=== PATIENT | male | born 1980 | race Caucasian/White ===

== ENCOUNTER → 2021-09-28 | Outpatient (CLI) | payer OTHER, SELFPAY ==
[2021-09-28 10:17] LABS: Probe Check PASS; Specimen Processing Control PASS
== END | disposition home or self-care (01) ==
LOC: LABSPEC 09:19
PROVIDERS: PCP Family Medicine; Referring Provider Family Medicine; Visit Provider Family Medicine
DX: Z20.822 Contact with and (suspected) exposure to COVID-19 (principal)
CPT/HCPCS: 87635; U0005; U0003

== ENCOUNTER 2021-12-24 18:17 | Outpatient (CLI) | payer OTHER, SELFPAY | END 2021-12-24 23:59 | disposition short-term general hospital (02) | PROVIDERS: PCP Family Medicine; Visit Provider Family Medicine | DX: Z03.818 Encounter for observation for suspected exposure to other biological agents ruled out (principal) | CPT/HCPCS: 87635; U0003; U0005 ==

== ENCOUNTER 2022-10-27 13:24 | Outpatient (CLI) | payer OTHER, SELFPAY ==
--- NOTE | 2022-10-27 13:32 | RAD_ITS ---
STUDY: X-RAY - LEFT FOOT CLINICAL: Male, 42 years old. Pain. TECHNIQUE: 3 view(s) of the foot. COMPARISON: None. FINDINGS: Normal talus, calcaneus, and tarsal bones. Normal visualized subtalar, talonavicular, calcaneocuboid, tarsal and tarsometatarsal articulations. Normal metatarsi. 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 Normal soft tissues. 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 No other abnormality present. Electronically Signed: Floyd Boucher, at 14:46 EST ,
[2022-10-27 15:41] LABS: Absolute Lymphocyte Count 2.33 X10^3/uL (0.83-4.51); Absolute Neutrophil Count 6.2 X10^3/uL (2.0-7.7); Basophil# 0.07 X10^3/uL; Basophil% 0.7 % (0-1); Eosinophil# 0.12 X10^3/uL; Eosinophils% 1.3 % (0-5); Hematocrit 47.5 % (40-54); Hemoglobin 15.6 g/dL (13.0-16.5); Lymphocyte # 2.33 X10^3/ul (0.83-4.51); Lymphocyte % 24.9 % (19-41); Mean Corp Hgb Conc 32.8 g/dL (32-36); Mean Corpuscular Hgb 28.8 pg (27.0-32.0); Mean Corpuscular Volume 87.8 fL (80-94); Mean Platelet Vol. 11.8 fl (6.2-12.0); Monocyte# 0.65 X10^3/uL; NRBC Flagged by Analyzer 0 % (0-5); Neutrophil # 6.15 X10^3/uL (2.7-7.7); Neutrophil % 65.9 % (47-70); Platelet Count 305 K/mm3 (150-450); RBC Distribution Width CV 12.2 % (11.6-14.6); Red Blood Count 5.41 M/mm3 (4.6-6.2); White Blood Count 9.3 K/mm3 (4.4-11.0)
[2022-10-27 15:52] LABS: Erythrocyte Sedimentation Rate 8 mm/hr (0-20)
[2022-10-27 16:10] LABS: Anion Gap 10 (5-15); BUN 10 mg/dL (7-18); BUN/Creat Ratio 11.8 RATIO (10-20); Calcium,Total 9.3 mg/dL (8.5-10.1); Chloride 105 mmol/L (98-107); Creatinine, Serum 0.84 mg/dL (0.70-1.30); EST Glomerular Filtration Rate 105 mL/min (>60); Est Glom Filt Rate - Afr Amer 127 mL/min (>60); Glucose 91 mg/dL (74-106); Potassium 4.4 mmol/L (3.5-5.1); Rheumatoid Factor < 10.0 IU/mL (<15); Sodium Level 141 mmol/L (136-145); Uric Acid 7.2 mg/dL (3.5-7.2)
[2022-10-31 20:43] LABS: ANTINUCLEAR ANTIBODIES DIRECT Negative (Negative)
== END 2022-10-27 23:59 | disposition home or self-care (01) ==
LOC: MTLAB 13:28
PROVIDERS: PCP Family Medicine; Referring Provider Family Medicine; Visit Provider Family Medicine
DX: M77.42 Metatarsalgia, left foot (principal); M19.09 Primary osteoarthritis, other specified site
CPT/HCPCS: 36415; 73630; 80048; 84550; 85025; 85652; 86038; 86431

== ENCOUNTER 2023-01-19 11:34 | Outpatient (CLI) | payer OTHER, SELFPAY ==
[2023-01-19 15:41] LABS: ALB/GLOB Ratio 1.3 RATIO (0.9-2.4); AST(SGOT) 30 U/L (15-37); Alanine Aminotransfer ALT/SGPT 59 U/L (16-61); Albumin, Serum 4.4 g/dL (3.2-5.0); Alkaline Phosphatase 58 U/L (45-117); Anion Gap 7 (5-15); BUN 12 mg/dL (7-18); BUN/Creat Ratio 14.1 RATIO (10-20); Calcium,Total 9.7 mg/dL (8.5-10.1); Chloride 107 mmol/L (98-107); Cholesterol 202 mg/dL (200); Creatinine, Serum 0.85 mg/dL (0.70-1.30); EST Glomerular Filtration Rate 104 mL/min (>60); Est Glom Filt Rate - Afr Amer 125 mL/min (>60); Globulin 3.3 g/dL (2.2-4.2); Glucose 88 mg/dL (74-106); High Density Lipoprotein 48 mg/dL; Potassium 4.1 mmol/L (3.5-5.1); Protein, Total 7.7 g/dL (6.4-8.2); Sodium Level 141 mmol/L (136-145); Triglycerides 110 mg/dL; Uric Acid 7.4 mg/dL (3.5-7.2); Very Low Density Lipoprotein 22 mg/dL (5-40)
== END 2023-01-19 23:59 | disposition home or self-care (01) ==
LOC: MTLAB 11:36
PROVIDERS: PCP Family Medicine; Referring Provider Family Medicine; Visit Provider Family Medicine
DX: Z13.220 Encounter for screening for lipoid disorders (principal)
CPT/HCPCS: 36415; 80053; 80061; 84550

== ENCOUNTER 2024-11-04 09:02 | Day surgery (SDC) | payer OTHER, SELFPAY ==
[2024-11-04] VITALS (7 sets, daily range): BP systolic 94–142; BP diastolic 68–99; PULSE 54–89; RESP 14–16; TEMP 36.2–36.9; O2SAT 95–98; BMI 37.8
--- NOTE | 2024-11-04 09:18 | PRE.ANES_ITS ---
ASA Classification* ASA Classification ASA Classification: 3 Assessment & Plan Anesthesia* Anesthesia Assessment Anesthesia Assessment: Discussed sedation and/or anesthesia options, risks, benefits, and alternatives with patient/parents/legal guardian/POA. Questions invited. The patient/parents/legal guardian/POA seems to understand and agrees to proceed with anesthesia plan. Reviewed the physical assessment, medical history, allergy history and patient home medications list prior to surgery/procedure/anesthetic and documented any changes. Performed airway and anesthesia risk assessments. Anesthesia Type Anesthesia Type: MAC Anesthesia Focused Assessment* Airway Assessment Mouth opens: >3 cm Mallampati Score: II Focused Labs Anesthesia Preop lab: CBC WBC 9.3 K/mm3 (4.4-11.0) 10/27/22 13:31 RBC 5.41 M/mm3 (4.6-6.2) 10/27/22 13:31 Hgb 15.6 g/dL (13.0-16.5) 10/27/22 13:31 Hct 47.5 % (40-54) 10/27/22 13:31 Plt Count 305 K/mm3 (150-450) 10/27/22 13:31 CHEMISTRY Potassium 4.1 mmol/L (3.5-5.1) 01/19/23 11:38 Sodium 141 mmol/L (136-145) 01/19/23 11:38 BUN 12 mg/dL (7-18) 01/19/23 11:38 Creatinine 0.85 mg/dL (0.70-1.30) 01/19/23 11:38 Glucose 88 mg/dL (74-106) 01/19/23 11:38 COAG Pre-Assessment Diagnosis/Proposed Procedure Planned Operative Procedure(s): CSCOPE Anesthesia History 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 When Was Last Pacemaker Check QUESTION #4 FULL TEXT: You/Your Family Experience fever (hyperthermia) with Anesthesia Last Oral Intake Last Oral intake: Last Oral Intake NPO since Meds taken in AM with sips of water? 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 transportation director: PONV - school transportation director Female No 11/01/24 09:46 HX of Motion Sickness No 11/01/24 09:46 HX of N/V After Surgery No 11/01/24 09:46 Non-Smoker Yes 11/01/24 09:46 Duration of Surgery greater No 11/01/24 09:46 than 60 minutes Number of Risk Factors 1 11/01/24 09:46 PONV Score Low Risk 11/01/24 09:46 Height & Weight Height & Weight: Anesthesia: Height & Weight Height 6 ft 4 in 08/27/24 08:42 Respiratory Assessment Respiratory Assessment - school transportation director: Respiratory Tract Infection Hx - school transportation director Hx Respiratory Tract Infection No 11/01/24 09:46 STOP Sleep Apnea STOP Sleep Apnea - school transportation director: STOP Sleep Apnea - school transportation director Hx Hypertension No 11/01/24 09:46 Hx Sleep Apnea No 11/01/24 09:46 CPAP BIPAP Do you snore loudly (louder No 11/01/24 09:46 than talking or can be heard Do you often feel tired/ No 11/01/24 09:46 fatigued/ sleepy during daytime? Has anyone observed you stop No 11/01/24 09:46 breathing during sleep? STOP Results Negative 11/01/24 09:46 QUESTION #5 FULL TEXT : Do you snore loudly (louder than talking or can be heard through closed doors)? Tobacco Use History Tobacco Use History - school transportation director: Tobacco Use History - school transportation director Tobacco Use Smoking Status Never smoker 11/01/24 09:46 Hx Tobacco Use No 11/01/24 09:46 Years Smoking Packs Smoked per Day Smoking Cessation Date was within the last 15 years Hx Smoking Cessation Date Hx Smoking Cessation Counseling Hematologic Medial History Hematologic Hx - school transportation director: Hematologic Medical Hx - [employer] Hx of Blood Transfusion No 11/01/24 09:46 Hx of Transfusion in last 3 No 11/01/24 09:46 Months Date of Last Transfusion (if within last 3 months) Ever experience any problems No 11/01/24 09:46 with transfusion(s)? Specify any problems Hx of Preganancy in last 3 N/A 11/01/24 09:46 Months Nurse Filling Out Transfusion NBUCHER 11/01/24 09:46 & Questions: Date: 11/01/24 11/01/24 09:46 Time: 09:47 11/01/24 09:46 Patient unable to answer at this time (ie. confused, unrespo /Reproduction History /Reproductive History - school transportation director: /Reproductive Hx- school transportation director Hx Now No 11/01/24 09:46 Gestational Age (in weeks): EDC: Hx Hx Para Hx Section SAB No 11/01/24 09:46 PFSH Medical History Wears glasses Gout High cholesterol Restless legs Non-smoker Home Medications ?Medication ?Instructions ?Recorded ?Last Taken ?Type allopurinol 100 mg tablet 100 mg PO BID 08/27/24 Unknown History Allergy/AdvReac Type Severity Reaction Status Date / Time No Known Allergies Allergy Verified 11/01/24 09:45 Surgical History History of wisdom tooth extraction Social History Smoking Status: Never smoker Review of Systems (Anesthesia) ROS Narrative System reviewed and no additional complaints, except as documented.
--- NOTE | 2024-11-04 09:43 | PCM.HP.STD ---
[facility] - General General Date of Admission: 11/04/24 Date of Service: 11/04/24 Chief Complaint: Screening colonoscopy HPI Narrative MARBELLA WILL, is a 44 M who presents Today for screening colonoscopy. He has never had a colonoscopy in the past. He is in good health. He has no significant past medical history. [facility] Medical History Wears glasses Gout High cholesterol Restless legs Non-smoker Home Medications ?Medication ?Instructions ?Recorded ?Last Taken ?Type allopurinol 100 mg tablet 100 mg PO BID 08/27/24 Unknown History Allergy/AdvReac Type Severity Reaction Status Date / Time No Known Allergies Allergy Verified 11/01/24 09:45 Surgical History History of wisdom tooth extraction Social History Smoking Status: Never smoker ROS Review of Systems ROS Unobtainable: other Constitutional Constitutional: Denies fatigue, fever(s), poor appetite, weight gain or weight loss ENT HEENT: Denies mouth lesions Cardiovascular Cardiovascular: Denies abdominal bloating, abdominal edema or abdominal pain Respiratory/Chest Respiratory/Chest: Denies change in mental status, change in phlegm color, chest congestion or chest tightness Gastrointestinal Gastrointestinal: Denies belching, bloating, change in bowel habits, change in stool character, chewing difficulty, coffee ground emesis, constipation, cramping, diarrhea, dyspepsia, dysphagia, early satiety, excessive flatus, fecal incontinence, heartburn, hematemesis, hematochezia, hemorrhoids, loose stools, melena, nausea, odynophagia, rectal bleeding, tenesmus, vomiting or weight changes Genitourinary Genitourinary: Denies abdominal discomfort, burning urination or itching Musculoskeletal Musculoskeletal: Reports as per HPI; Denies muscle weakness or myalgias Integumentary Integumentary: Denies jaundice Neurologic Neurologic: Denies lack of coordination or weakness Psychiatric Psychiatric: Denies confusion, depression, memory loss, mood swings, paranoia or suicidal ideation Endocrine Endocrinology: Denies systems reviewed and no addt'l complaints, except as documented Hematologic/Lymphatic Hematologic/Lymphatic: Denies anemia, easy bleeding, easy bruising or lymphadenopathy Allergic/Immunologic Allergic/Immunologic: Denies systems reviewed and no addt'l complaints, except as documented Vital Signs Vital Signs Vital Signs: 11/04/24 09:26 11/04/24 09:26 Temperature 98.4 F Temperature Source Temporal Pulse Rate 89 Respiratory Rate 16 Respiratory Pattern Normal Blood Pressure 142/99 H Blood Pressure Mean 113 Blood Pressure Source Monitor Blood Pressure Position Semi-Fowlers Blood Pressure Location Right Arm Pulse Ox 98 Oxygen Delivery Method Room Air Weight Weight: 310 lb 13.628 oz Body Mass Index (BMI) 37.8 Physical Exam Const alert General Appearance: cooperative Orientation / Consciousness: oriented to person HEENT hearing grossly normal bilaterally Head and Scalp: normal to inspection Face and Sinus: face symmetric Nose: external nose normal Mouth: oral and palatal mucosa normal Eyes conjunctivae normal General Eye: normal appearance of both eyes Neck full ROM General: normal visual inspection Lymph Lymphatic: no lymphadenopathy noted Chest inspection of chest normal and palpation of chest normal Chest: symmetrical chest wall rise Resp normal respiratory effort Effort and Inspection: able to speak in complete sentences Cardio regular rate GI non-distended Percussion: normal to percussion Rectal Exam: deferred Neuro Speech: speech normal Gait (Neuro): normal gait Assessment & Plan Assessment/Plan (1) Encounter for screening for malignant neoplasm of colon: PLAN: He was explained alternatives, risk and benefits include not withstanding bleeding, infection, sepsis, perforation, need for emergent surgery and . He will have an ASA of 3.
--- NOTE | 2024-11-04 10:30 | COLBX_PTH ---
PATIENT: MARBELLA WILLMIROVITCHACCT #:[id number] LOC: EN U#:[id number] AGE/SX: 44/M ROOM: RE11/04/[address]: Dr. René Pham DO : 1980 BED: DIS: 11/04/2024 SPEC #: [id number] RECD: 11/04/24 12:29 STATUS: ARABELLA MORGAN #: [id number] ANASTASIIA: 11/04/24 10:[address]: René Pham DEPT: SURGICAL PATHOLOGY RECD BY: Diana Degroot ENTERED: 11/04/24 12:58 SP TYPE: COLON BX REY DR: Dr. Nader Arrieta MD Tissues: A - Transverse colon B - Sigmoid colon biopsy Procedures: Surgery Specimen Level IV HEADER OPERATION: Colonoscopy with biopsy PRE-OP DIAGNOSIS: Colon screening TISSUE SUBMITTED: A- Transverse colon polyp biopsy, B- Sigmoid colon polyp biopsy MICROSCOPIC DIAGNOSIS A. Transverse colon polyp, biopsy: Benign mucosal polyp. See comment. B. Sigmoid colon polyp, biopsy: Hyperplastic polyp. AM. 11/05/2024 COMMENT A. Neither hyperplastic nor adenomatous change is identified. Clinical correlation is suggested. MICROSCOPIC DESCRIPTION Slides are reviewed. GROSS DESCRIPTION A. Received in fixative is one container labeled with the patient's name and designated Transverse colon polyp biopsy. The specimen consists of one irregular fragment of light ventura soft tissue that measures 0.5 x 0.5 x 0.1 cm. The specimen is totally submitted in one cassette. B. Received in fixative is one container labeled with the patient's name and designated Sigmoid colon polyp biopsy. The specimen consists of one irregular fragment of light ventura soft tissue that measures 0.3 x 0.2 x 0.1 cm. The specimen is totally submitted in one cassette. AM. 11/04/2024 TC:5 CPT:93269d2
--- NOTE | 2024-11-04 11:02 | OP.CCLET_ITS ---
11/04/2024 Nash Arrieta [address] [place] [address] Re : Colonoscopy procedure for Aleksandr Rogers Dear Dr. Arrieta This procedure was performed on Monday, November 04, 2024. My impressions and recommendations are as follows: Impressions : - Diverticulosis in the recto-sigmoid colon, at the hepatic flexure and in the ascending colon. - Two 4 mm polyps in the sigmoid colon and in the ascending colon, removed with a jumbo cold forceps. Resected and retrieved. Recommendations : - Discharge patient to home. - Resume previous diet. - Continue present medications. - Await pathology results. - Repeat colonoscopy in 5 years for surveillance. My findings are described in the full procedure note, which is enclosed. If I can be of further assistance, please feel free to contact me at . Sincerely, René Pham, 11/04/2024 11:01:52 AM This report has been signed electronically.
--- NOTE | 2024-11-04 11:02 | OP.COLON_ITS ---
Patient Name: Aleksandr Rogers Procedure Date: 11/04/2024 10:31 AM Date of : 1980 Age: 44 Procedure: Colonoscopy Indications: Screening for colorectal malignant neoplasm Providers: René Pham DO Referring MD: Nash Arrieta Medicines: Monitored Anesthesia Care Patient Profile: This is a 44 year old male. Refer to note in patient chart for documentation of history and physical. Last Colonoscopy: none. The patient's first colonoscopy is today. Complications: No immediate complications. Procedure: Pre-Anesthesia Assessment: - Prior to the procedure, a History and Physical was performed, and patient medications and allergies were reviewed. The patient is competent. The risks and benefits of the procedure and the sedation options and risks were discussed with the patient. All questions were answered and informed consent was obtained. Patient identification and proposed procedure were verified by the physician in the pre-procedure area. Mental Status Examination: alert and oriented. Airway Examination: normal oropharyngeal airway and neck mobility. Respiratory Examination: clear to auscultation. CV Examination: normal. Prophylactic Antibiotics: The patient does not require prophylactic antibiotics. Prior Anticoagulants: The patient has taken no anticoagulant or antiplatelet agents except for NSAID medication. ASA Grade Assessment: II - A patient with mild systemic disease. After reviewing the risks and benefits, the patient was deemed in satisfactory condition to undergo the procedure. The anesthesia plan was to use monitored anesthesia care (MAC). Immediately prior to administration of medications, the patient was re-assessed for adequacy to receive sedatives. The heart rate, respiratory rate, oxygen saturations, blood pressure, adequacy of pulmonary ventilation, and response to care were monitored throughout the procedure. The physical status of the patient was re-assessed after the procedure. After I obtained informed consent, the scope was passed under direct vision. Throughout the procedure, the patient's blood pressure, pulse, and oxygen saturations were monitored continuously. The Colonoscope was introduced through the anus and advanced to the cecum, identified by appendiceal orifice and ileocecal valve. The colonoscopy was performed without difficulty. The patient tolerated the procedure well. The quality of the bowel preparation was adequate. The ileocecal valve, appendiceal orifice, and rectum were photographed. Scope In: 10:42:42 AM Scope Withdrawal Time 0 hours 9 minutes 56 seconds Scope Out: 10:57:23 AM Total Procedure Duration Time 0 hours 14 minutes 41 seconds Findings: The perianal and digital rectal examinations were normal. A few small-mouthed diverticula were found in the recto-sigmoid colon, hepatic flexure and ascending colon. Two sessile polyps were found in the sigmoid colon and ascending colon. The polyps were 4 mm in size. These polyps were removed with a jumbo cold forceps. Resection and retrieval were complete. Verification of patient identification for the specimen was done. Estimated blood loss was minimal. No additional abnormalities were found on retroflexion. Impression: - Diverticulosis in the recto-sigmoid colon, at the hepatic flexure and in the ascending colon. - Two 4 mm polyps in the sigmoid colon and in the ascending colon, removed with a jumbo cold forceps. Resected and retrieved. Recommendation: - Discharge patient to home. - Resume previous diet. - Continue present medications. - Await pathology results. - Repeat colonoscopy in 5 years for surveillance. Procedure Code(s): --- Professional --- 97904, Colonoscopy, flexible; with biopsy, single or multiple CPT copyright 2021 [employer]. All rights reserved. The codes documented in this report are preliminary and upon ham boner review may be revised to meet current compliance requirements. René Pham DO 11/04/2024 11:01:52 AM This report has been signed electronically. Number of Addenda: 0 Note Initiated On: 11/04/2024 10:31 AM
--- NOTE | 2024-11-04 11:07 | PCM.POST.ANE ---
Anesthesia: Postop Eval I Current Vital Signs Temperature: 97.2 F Pulse Rate: 84 Blood Pressure: 94/71 Respiratory Rate: 16 Pulse Ox: 96 Oxygen Delivery Method: Room Air Assessment Airway patent: Yes Spontaneous unlabored respirations: Yes Mental status: Asleep nausea: No Vomiting: No Anesthesia Complication: No Fluid Hydration Crystalloid volume administer (ml): 55 Total IV fluid infused: 55 Progress Note Anesthesia document: Postop Eval 1 completed: Yes
--- NOTE | 2024-11-04 17:48 | PCM.POSTANE2 ---
Anesthesia Postop Eval I Sum Postop Eval Completion status Anesthesia document: Postop Eval 1 completed: Yes Anesthesia Postop Eval I Summary Anesthesia Postop Eval I Summary: Anesthesia Postop Eval I: Assessment Summary Airway patent Yes 11/04/24 11:08 [email or web address] Spontaneous unlabored Yes 11/04/24 11:08 [email or web address] respirations Mental status Asleep 11/04/24 11:08 [email or web address] nausea No 11/04/24 11:08 [email or web address] Vomiting No 11/04/24 11:08 [email or web address] Anesthesia Postop Eval I: Fluid Summary Crystalloid volume administer 55 11/04/24 11:08 [email or web address] (ml) Colloids volume administered ( ml) Blood Product volume administered (ml) Total IV fluid infused 55 11/04/24 11:08 [email or web address] Anesthesia Postop Eval I: Summary Notes Anesthesia Complication No 11/04/24 11:08 [email or web address] Anesthesia Complication Comment: Post-operative progress note Anesthesia: Postop Eval II Evaluation Mental status: Awake Pain Level: 0 nausea: No Vomiting: No
== END 2024-11-04 11:41 | disposition home or self-care (01) ==
LOC: EN 09:05 → AC 09:07
PROVIDERS: PCP Family Medicine; Referring Provider Family Medicine; Visit Provider Internal Medicine Gastroenterology
PROC: 0DJD8ZZ Inspection of Lower Intestinal Tract, Via Natural or Artificial Opening Endoscopic (ICD-10-PCS; CPT 45378; principal; 2024-11-04 10:25)
DX: Z12.11 Encounter for screening for malignant neoplasm of colon (principal); K57.30 Diverticulosis of large intestine without perforation or abscess without bleeding; E78.00 Pure hypercholesterolemia, unspecified; K63.5 Polyp of colon; M10.9 Gout, unspecified; Z79.899 Other long term (current) drug therapy
CPT/HCPCS: 45380; 88305; A4216; J2405